=== PATIENT | female | born 1990 | race Hispanic/Latino ===

== ENCOUNTER 2018-07-14 19:49 | Observation (INO) | payer MEDICAID ==
[~2018-07-14] VITALS: Ht 149.9 cm; Wt 101.2 kg
[2018-07-14 20:08] VITALS: BP 132/75
[2018-07-14] MEDS ORDERED: LACTATED RINGERS 1000ML IV PRN (20:15)
[2018-07-14 20:26] LABS: APPEARANCE,URINE Clear (CLEAR); BILIRUBIN,URINE Negative (NEGATIVE); COLOR,URINE Yellow (YELLOW); GLUCOSE, URINE (UA) Negative (NEGATIVE); KETONES,URINE Negative (NEGATIVE); LEUKOCYTE ESTERASE ,URINE Trace (NEGATIVE); NITRATE,URINE Negative (NEGATIVE); OCCULT BLOOD,URINE Negative (NEGATIVE); PH,URINE 6.5 (5.0-8.0); PROTEIN,URINE Negative (NEGATIVE); UROBILINOGEN,URINE 0.2 mg/dL (0.2-1.0)
[2018-07-14 20:42] LABS: RBC,URINE 0-1 /HPF (0-1)
[2018-07-14 20:43] LABS: BACTERIA,URINE Rare /HPF (None Seen); SQUAMOUS EPITHELIAL CELL,UR Few /HPF (0-2); YEAST,URINE BUDDING Rare /HPF (None Seen)
== END 2018-07-14 22:40 | disposition left against medical advice (07) ==
LOC: EDH 19:49 → LDH 20:02
PROVIDERS: ADMIT Obstetrics & Gynecology; ATTEND Obstetrics & Gynecology
DX: O42.92 Full-term premature rupture of membranes, unspecified as to length of time between rupture and onset of labor (principal); Z3A.37 37 weeks gestation of pregnancy
CPT/HCPCS: 59025; 76805; 81001; 99284; G0378 ×3; J7120